=== PATIENT | male | born 1950 | race Caucasian/White ===

== ENCOUNTER → 2021-02-04 10:43 | Outpatient (CLI) | payer MEDICARE, SELFPAY ==
--- NOTE | 2021-02-04 | DI.MRI.S_ITS ---
PROCEDURE: MR KNEE RT WO CON INDICATIONS: Pain in right knee TECHNIQUE: Noncontrast sagittal PD fast spin echo and T2 fast spin echo with fat saturation, sagittal 3-D FLASH with fat saturation; coronal T1 spin echo and PD fast spin echo with fat saturation, and axial PD fast spin echo with fat saturation through the knee. COMPARISON: [facility], MR, MR KNEE RIGHT WITHOUT CONTRAST, 04/20/2017, 16:23. [facility] [place], CR, XR KNEE 4+ VIEWS RIGHT, 12/03/2020, 9:26. FINDINGS: Image quality: Degraded by motion artifact. Menisci: Mild T2 signal elevation at the posterior meniscal capsular junction of the posterior horn medial meniscus is present. Amorphous high signal intensity within the free edge of the medial meniscal body is present demonstrating superior and inferior articular surface extension, indicating degenerative tearing. Linear oblique and amorphous high signal intensity within the anterior horn, body, and posterior horn lateral meniscus is present, demonstrating superior and inferior articular surface extension, indicating complex tearing, which is progressed since the prior examination. Cruciate ligaments: The anterior and posterior cruciate ligaments appear intact. Medial structures: The medial collateral ligament appears intact. Visualized portions of the pes anserinus tendons appear normal. No abnormal bursal fluid. Lateral structures: The lateral collateral ligament demonstrates mild T2 signal elevation at the femoral origin. The long and short heads of the biceps femoris tendon appear intact. The popliteus tendon appears normal. Iliotibial band appears normal. Anterior structures: Previously seen moderate grade tearing of the quadriceps tendon at the patellar insertion site is not significantly changed.. Patellar alignment is normal. No femoral trochlear dysplasia or ventral trochlear prominence. No edema in the infrapatellar fat pad. Bones and cartilage: No bone marrow contusions or fractures. There is mild tricompartmental periarticular osteophyte formation. Mild articular cartilage loss diffusely overlies the weight-bearing aspects of the medial femoral condyle and medial tibial plateau. Moderate articular cartilage loss diffusely overlies the medial and lateral patellar facets. Joint space: There is a small knee joint effusion. No Leiva's cyst. Normal appearing synovial plicae are incidentally noted. IMPRESSION: 1. Tricompartmental osteoarthritis with associated articular cartilage loss. 2. Medial and lateral meniscal tearing. 3. No significant change in quadriceps tendon tearing. 4. Knee joint effusion. 6. Low-grade partial thickness lateral collateral ligament tear. Dictated by: David Astorga M.D. on 02/04/2021 at 11:54 Approved by: David Astorga M.D. on 02/04/2021 at 11:57
== END ==
PROVIDERS: Referring Provider Orthopaedic Surgery; Visit Provider Orthopaedic Surgery
DX: M25.561 Pain in right knee (principal); M17.11 Unilateral primary osteoarthritis, right knee; S83.241A Other tear of medial meniscus, current injury, right knee, initial encounter; S83.271A Complex tear of lateral meniscus, current injury, right knee, initial encounter; S83.421A Sprain of lateral collateral ligament of right knee, initial encounter; M25.461 Effusion, right knee
CPT/HCPCS: 73721